=== PATIENT | male | born 1990 | race Two or more races ===

== ENCOUNTER 2022-08-28 08:54 | Inpatient (IN) | payer BC ==
[2022-08-28 09:11] VITALS: BMI 21.2
[2022-08-28] MEDS ORDERED: MAG HYDROX/AL HYDROX/SIMETH 30 ML UNIT-DOSE CUP PO PRN (09:27)
[2022-08-28] MEDS ORDERED: BUPRENORPHINE HCL 150 MCG, BUPRENORPHINE HCL 75 MCG BC PRN (09:27)
[2022-08-28] MEDS ORDERED: MAGNESIUM CITRATE 300 ML BOTTLE PO PRN (09:27)
[2022-08-28] MEDS ORDERED: NALOXONE HCL (KLOXXADO) 8 MG SPRAY NS PRN (09:27)
[2022-08-28] MEDS ORDERED: MAGNESIUM HYDROX 2400MG/30ML ORAL SUSPENSION 30 ML CUP PO PRN (09:27)
[2022-08-28] MEDS ORDERED: ACETAMINOPHEN 325 MG TABLET (FP) PO PRN ×2 (09:27)
[2022-08-28] MEDS ORDERED: NICOTINE 10 MG CARTRIDGE (INHALER) IH PRN (09:27)
[2022-08-28] MEDS ORDERED: BISMUTH SUBSALICYLATE 262 MG/15 ML BTL PO PRN (09:27)
[2022-08-28] MEDS ORDERED: DICYCLOMINE HCL 10 MG CAPSULE PO PRN (09:27)
[2022-08-28] MEDS ORDERED: cloNIDine HCL 0.1 MG TABLET PO ONE (09:27)
[2022-08-28] MEDS ORDERED: LOPERAMIDE HCL 2 MG CAPSULE PO PRN (09:27)
[2022-08-28] MEDS ORDERED: BUPRENORPHINE HCL 150 MCG, BUPRENORPHINE HCL 75 MCG BC ONE (09:27)
[2022-08-28] MEDS ORDERED: BENZOCAINE/MENTHOL (CHLORASEPTIC ) LOZENGE MM PRN (09:27)
[2022-08-28] MEDS ORDERED: BUPRENORPHINE HCL 150 MCG FILM BC ONE (09:35)
[2022-08-28] MEDS ORDERED: BUPRENORPHINE HCL 75 MCG FILM BC ONE (09:36)
[2022-08-28] MEDS: PRENATAL VITAMINS W/ FOLIC ACID TABLET (FP) PO SCH (10:01)
[2022-08-28] MEDS: diazePAM 5 MG TABLET PO PRN ×3 (11:41→22:20)
[2022-08-28] MEDS: METHOCARBAMOL 500 MG TABLET PO PRN ×2 (11:41→22:18)
[2022-08-28 17:05] LABS: HEMATOCRIT 45.9 % (35.4-49); HEMOGLOBIN 15.5 GM/dL (11.7-16.9); MCH 31.9 pg (25.7-33.7); MCHC 33.8 g/dl (32.0-35.9); MEAN CELL VOLUME 94.2 fl (80-96); MEAN PLT VOLUME 8.1 fl (7.5-11.1); PLATELET COUNT 231 10^3/uL (134-434); RBC 4.88 M/mm3 (4.00-5.60); RDW 13.9 % (11.9-15.9); WHITE BLOOD COUNT 8.7 K/mm3 (4.0-10.0)
[2022-08-28 17:14] LABS: ALBUMIN 3.9 g/dl (3.4-5.0); BLOOD UREA NITROGEN 18.9 mg/dL (7-18)
[2022-08-28 17:18] LABS: CREATININE 0.9 mg/dL (0.55-1.3)
[2022-08-28 17:19] LABS: BILIRUBIN,TOTAL 0.4 mg/dL (0.2-1); TOT PROT 6.8 g/dl (6.4-8.2)
[2022-08-28] MEDS: hydrOXYzine PAMOATE 25 MG CAPSULE (FP) PO PRN (17:52)
[2022-08-28 18:12] LABS: HIV INTERPRETATION NEGATIVE (NEGATIVE)
[2022-08-28] MEDS: MELATONIN 5 MG TABLETS PO SCH (22:18)
[2022-08-28] MEDS: THIAMINE HCL 100 MG TABLET (FP) PO SCH (22:19)
[2022-08-29] MEDS ORDERED: BUPRENORPHINE HCL 150 MCG, BUPRENORPHINE HCL 75 MCG BC PRN
[2022-08-29] MEDS: BUPRENORPHINE HCL 150 MCG, BUPRENORPHINE HCL 75 MCG BC SCH ×2 (05:50→18:01)
[2022-08-29] MEDS: METHOCARBAMOL 500 MG TABLET PO PRN ×2 (05:52→18:01)
[2022-08-29] MEDS: PRENATAL VITAMINS W/ FOLIC ACID TABLET (FP) PO SCH (10:51)
[2022-08-29] MEDS: diazePAM 5 MG TABLET PO PRN ×2 (10:52→22:22)
[2022-08-29] MEDS: hydrOXYzine PAMOATE 25 MG CAPSULE (FP) PO PRN ×2 (10:54→22:20)
[2022-08-29] MEDS: IBUPROFEN 600 MG TABLET (FP) PO PRN (10:55)
[2022-08-29] MEDS: cloNIDine HCL 0.1 MG TABLET PO PRN (18:01)
[2022-08-29] MEDS: ONDANSETRON *ODT* 4 MG TABLET SL PRN (18:04)
[2022-08-29] MEDS: MELATONIN 5 MG TABLETS PO SCH (22:19)
[2022-08-29] MEDS: THIAMINE HCL 100 MG TABLET (FP) PO SCH (22:19)
[2022-08-30] MEDS: BUPRENORPHINE HCL 450 MCG FILM BC SCH ×2 (05:47→17:32)
[2022-08-30] MEDS: IBUPROFEN 400 MG TABLET (FP) PO PRN ×2 (05:49→17:31)
[2022-08-30] MEDS: PRENATAL VITAMINS W/ FOLIC ACID TABLET (FP) PO SCH (11:13)
[2022-08-30] MEDS: hydrOXYzine PAMOATE 25 MG CAPSULE (FP) PO PRN ×3 (11:16→23:30)
[2022-08-30] MEDS: METHOCARBAMOL 500 MG TABLET PO PRN ×2 (11:16→17:31)
[2022-08-30] MEDS: cloNIDine HCL 0.1 MG TABLET PO PRN ×3 (11:16→22:04)
[2022-08-30] MEDS: IBUPROFEN 600 MG TABLET (FP) PO PRN (11:16)
[2022-08-30] MEDS: diazePAM 5 MG TABLET PO PRN ×3 (12:28→23:30)
[2022-08-30] MEDS: MELATONIN 5 MG TABLETS PO SCH (22:02)
[2022-08-30] MEDS: THIAMINE HCL 100 MG TABLET (FP) PO SCH (22:02)
[2022-08-31] MEDS: METHOCARBAMOL 500 MG TABLET PO PRN ×2 (00:27→22:29)
[2022-08-31] MEDS: BUPRENORPHINE/NALOXONE 4 MG/1 MG FILM PACKET SL SCH ×2 (07:47→18:38)
[2022-08-31] MEDS: ONDANSETRON *ODT* 4 MG TABLET SL PRN (08:41)
[2022-08-31] MEDS: PRENATAL VITAMINS W/ FOLIC ACID TABLET (FP) PO SCH (10:27)
[2022-08-31] MEDS: diazePAM 5 MG TABLET PO PRN ×2 (10:28→22:30)
[2022-08-31] MEDS: MELATONIN 5 MG TABLETS PO SCH (22:29)
[2022-08-31] MEDS: hydrOXYzine PAMOATE 25 MG CAPSULE (FP) PO PRN (22:29)
[2022-08-31] MEDS: THIAMINE HCL 100 MG TABLET (FP) PO SCH (22:30)
[2022-09-01] MEDS ORDERED: MELATONIN 5 MG TABLETS PO ONE (02:15)
[2022-09-01] MEDS: IBUPROFEN 400 MG TABLET (FP) PO PRN (03:21)
[2022-09-01] MEDS: METHOCARBAMOL 500 MG TABLET PO PRN (03:22)
[2022-09-01] MEDS ORDERED: BUPRENORPHINE/NALOXONE 8 MG/2 MG FILM PACKET SL ONE (06:00)
[2022-09-01] MEDS: ONDANSETRON *ODT* 4 MG TABLET SL PRN (06:51)
[2022-09-01 09:08] VITALS: BP 143/94; PULSE 71; RESP 16; TEMP 97.8
[2022-09-01] MEDS: PRENATAL VITAMINS W/ FOLIC ACID TABLET (FP) PO SCH (10:04)
== END 2022-09-01 11:24 | disposition home or self-care (01) | DRG 773 ==
LOC: YASAS 08:54 → Y3N 09:33
PROVIDERS: ADMIT Allergy & Immunology; ATTEND Surgery
PROC: HZ2ZZZZ Detoxification Services for Substance Abuse Treatment (ICD-10-PCS; principal; 2022-08-28)
DX: F11.23 Opioid dependence with withdrawal (principal); F12.20 Cannabis dependence, uncomplicated; F19.24 Other psychoactive substance dependence with psychoactive substance-induced mood disorder; F32.A Depression, unspecified; Z28.310 Unvaccinated for COVID-19; Z28.9 Immunization not carried out for unspecified reason
CPT/HCPCS: 36415; 80053; 85027; 86780; 87389; 93005; 93010; C9803-CS; Q0162; U0003; U0005